=== PATIENT | female | born 1990 | race African-American/Black ===

== ENCOUNTER 2017-11-13 01:49 | Emergency (ER) | payer OTHER ==
[~2017-11-13] VITALS: Ht 157.5 cm; Wt 79.4 kg
[~2017-11-13 01:49] MED LIST: BACTRIM DS TAB1 EACH PO; BENTYL 20 MG TA20 M1 PO; BENTYL20 MG PO; CIPROFLOXACIN500 M1 PO; DEPAKOTE ER500 MG; DEPAKOTE500 MG PO; FLAGYL500 MG PO; GABAPENTIN600 M1 PO; HYDROCHLOROTH12.5 MG; HYDROCHLOROTH12.5 MG PO; MICROZIDE12.5 MG PO; NOHOMEMEDICATIONS; NORCO 5-325 TA1 EACH PO; PERCOCET 5-3251 EACH PO; PHENERGAN 25 MG25 M1 PO; PHENERGAN50 MG RC; PROMETHAZINE12.5 M4 RE; TORADOL 10 MG T10 MG PO; TRAMADOL 50 MG50 MG PO; ULTRAM 50MG TAB50 MG PO; VALIUM5 MG PO; ZANTAC 150MG T150 M1 PO; ZOFRAN 4 MG ORAL4 MG PO; ZOFRAN ODT4 MG PO; ZOFRAN4 MG PO
[2017-11-13 04:03] VITALS: BP 126/84
== END 2017-11-13 04:04 | disposition home or self-care (01) ==
LOC: ER 01:49
DX: S51.812A Laceration without foreign body of left forearm, initial encounter (principal); I10 Essential (primary) hypertension; G40.909 Epilepsy, unspecified, not intractable, without status epilepticus; Z88.6 Allergy status to analgesic agent; F17.210 Nicotine dependence, cigarettes, uncomplicated; W45.8XXA Other foreign body or object entering through skin, initial encounter; Y93.G3 Activity, cooking and baking; Y92.89 Other specified places as the place of occurrence of the external cause; Y99.8 Other external cause status

== ENCOUNTER 2018-01-11 23:43 | Emergency (ER) | payer OTHER ==
[~2018-01-11] VITALS: Ht 157.5 cm; Wt 73.9 kg
[2018-01-12] MEDS ORDERED: HYDROCODONE-ACE15 ML PO (00:07)
[2018-01-12] MEDS ORDERED: METOCLOPRAMIDE 55 MG PO (00:19)
[2018-01-12 01:05] VITALS: BP 140/92
== END 2018-01-12 01:10 | disposition home or self-care (01) ==
LOC: ER 23:43
DX: S00.83XA Contusion of other part of head, initial encounter (principal); M26.602 Left temporomandibular joint disorder, unspecified; I10 Essential (primary) hypertension; G40.909 Epilepsy, unspecified, not intractable, without status epilepticus; F17.210 Nicotine dependence, cigarettes, uncomplicated; Z91.041 Radiographic dye allergy status; Z88.6 Allergy status to analgesic agent; Z91.012 Allergy to eggs; X58.XXXA Exposure to other specified factors, initial encounter; Y93.89 Activity, other specified; Y92.89 Other specified places as the place of occurrence of the external cause; Y99.8 Other external cause status

== ENCOUNTER 2018-03-11 23:02 | Emergency (ER) | payer OTHER ==
[~2018-03-11] VITALS: Ht 157.5 cm; Wt 73.5 kg
--- NOTE | ~2018-03-11 | EKG ---
[place] [address] [address] [employer] [facility] [place] [place] [address] ELECTROCARDIOGRAM REPORT Name: CARMEN OLIVEIRA [facility]: [facility] [id number] Admission: 03/11/18 Attend Phys: Discharge: 03/12/18 Date of : 86 Report #: [id number] THIS REPORT FOR: //name// [facility] ED Test Date: 2018-03-11 Test Time: 23:08:33 Pat Name: CARMEN OLIVEIRA Department: Room: Gender: F Manager Law: GREGOR : 1990 Requested By: Ange Ye Order Number: [id number] MD: Omar Echeverria Measurements Intervals [place] Rate: 91 P: 46 [place]: 150 QRS: 12 QRSD: 88 T: 16 QT: 356 QTc: 439 Interpretive Statements Sinus rhythm RSR' in V1 or V2, right VCD Baseline wander in lead(s) II No previous ECG available for comparison Electronically Signed On 03-12-2018 7:50:22 CDT by Omar Echeverria [email or web address] <ELECTRONICALLY SIGNED> By: Omar Echeverria MD, [facility] 03/12/18 0750 07 07 Omar Echeverria MD, [facility] /EPI
[~2018-03-11 23:02] MED LIST changes: +HYDROCODONE-ACE15 ML PO; +METOCLOPRAMIDE 55 MG PO
[2018-03-12 00:38] LABS: ABSOLUTE NEUTROPHILS 10.8 thou/uL (1.4-8.2); BASOPHILS 0.7 % (0.0-2.0); EOSINOPHILS 0.4 % (0.0-3.0); HEMATOCRIT 32.8 % (37.0-47.0); HEMOGLOBIN 11.1 gm/dL (12.0-15.0); MCH 26.3 pg (26.0-34.0); MCHC 33.8 g/dL (28.0-37.0); MCV 77.8 fL (80.0-100.0); MONOCYTES 7.4 % (1.0-8.0); PLATELET COUNT 457 thou/uL (150-400); POLYS 70.5 % (36.0-66.0); RBC 4.21 mil/uL (4.20-5.00); WBC 15.3 thou/uL (4.0-11.0)
[2018-03-12 00:45] LABS: ANION GAP 12 mmol/L (7-16); BUN 17 mg/dL (7-18); CALCIUM 9.4 mg/dL (8.5-10.1); CHLORIDE 106 mmol/L (98-107); CO2 22 mmol/L (21-32); CREATININE 0.7 mg/dL (0.6-1.0); GLUCOSE 81 mg/dL (74-106); POTASSIUM 3.9 mmol/L (3.5-5.1); SODIUM 140 mmol/L (136-145)
[2018-03-12 00:54] LABS: TROPONIN-I <0.06 ng/mL (<0.06)
[2018-03-12] MEDS ORDERED: NORCO 5-325 TA1 EACH PO (01:31)
[2018-03-12 02:03] VITALS: BP 138/98
== END 2018-03-12 02:15 | disposition home or self-care (01) ==
LOC: ER 23:02
PROVIDERS: Emergency Medicine
DX: R07.9 Chest pain, unspecified (principal); R09.1 Pleurisy; F17.210 Nicotine dependence, cigarettes, uncomplicated; I10 Essential (primary) hypertension; F20.9 Schizophrenia, unspecified; F31.9 Bipolar disorder, unspecified; K74.60 Unspecified cirrhosis of liver; Z91.041 Radiographic dye allergy status; Z88.6 Allergy status to analgesic agent; Z91.012 Allergy to eggs

== ENCOUNTER 2018-06-14 15:19 | Inpatient (IN) | payer OTHER ==
[~2018-06-14] VITALS: Ht 157.5 cm; Wt 77.1 kg
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
--- NOTE | ~2018-06-14 | PATH ---
[facility] [place] [address] PATHOLOGY RPT PROCEDURE Name: WILLIAM THOMPSON Room #: 424-P DIS IN M.R.#: [id number] Admission: 06/14/18 Date of : 86 Discharge: 06/18/18 Report #: [id number] Path Case #: [id number] [facility] Accession Number: [id number] . 01 Material submitted: . PART A: DUODENAL BX PART B: ANTRUM BX PART C: RANDOM COLON BX . 01 Clinical history: . Pre-OP DX: Abdominal pain, nausea with vomiting, diarrhea Post-OP DX: BX . 02 Diagnosis: A. Small bowel mucosa, duodenal, rule out celiac, endoscopic biopsy: - No diagnostic abnormalities. - Negative for villous blunting or increase in intraepithelial lymphocytes. . B. Gastric mucosa, antrum, endoscopic biopsy: - Mild reactive gastropathy. - Negative for intestinal metaplasia or atrophy. - Negative for Helicobacter pylori (properly controlled immunohistochemical stain performed). . C. Large intestine mucosa, random colon, endoscopic biopsy: - Rare focus of acute cryptitis; nonspecific changes (please see comment). - Negative for dysplasia or malignancy. . (IUV:airport ramp agent; 06/18/2018) MBR/06/18/2018 . 02 Comment: Sections of the colonic mucosa designated "random colon" show focal cryptitis, and a moderately cellular lamina propria composed predominantly of lymphocytes and plasma cells and occasional eosinophils. Surface epithelial inflammation is not identified. There are no crypt abscesses, granulomas or viral inclusions. The process affects all the fragments with a similar intensity. Given the description, the differential diagnosis includes mild focal active colitis of self-limited etiology, or bowel preparation, or acute diverticulitis, or medication-induced colitis. Please correlate with clinically. Features to suggest microscopic colitis are not present. . (IUV:airport ramp agent; 06/18/2018) . 02 Electronically signed: . [place] [address] PATHOLOGY RPT PROCEDURE Name: WILLIAM THOMPSON FEDERICO Room #: 424-P [facility] IN M.R.#: [id number] Admission: 06/14/18 Date of : 86 Discharge: 06/18/18 Report #: [id number] Path Case #: [id number] Anat Jimenez MD, Pathologist NPI- [id number] . 01 Gross description: . A. Received in formalin labeled "Jay, Tysa, duodenal BX," are 2 segments of childress soft tissue measuring 0.7 x 0.2 x 0.2 cm in aggregate dimensions and ranging from 0.3 to 0.4 cm in maximum dimension. The specimen is submitted entirely in cassette A1. . B. Received in formalin labeled "William Thompson, antrum BX," are 2 segments of childress soft tissue measuring 1.2 x 0.1 x 0.1 cm in aggregate dimensions and ranging from 0.5 to 0.7 cm in maximum dimension. The specimen is submitted entirely in cassette B1. . C. Received in formalin labeled "William Thompson, random colon BX," are multiple segments of childress soft tissue measuring 1.3 x 0.4 x 0.1 cm in aggregate dimensions. The specimen is filtered and entirely submitted in cassette C1. (TSD; 06/17/2018) TOB/TOB . 02 Pathologist provided ICD-10: K31.9, R10.9, R11.2, R19.7 . 02 CPT . 736751, 319162, 745485, R32144 Specimen Comment: A courtesy copy of this report has been sent to Specimen Comment: [phone], . Specimen Comment: Report sent to / DR BAIRD Specimen Comment: A duplicate report has been generated due to demographic updates. Performed at: [address], [place] [id number] MD Conor Nieves MD Phone: [phone] Performed at: [address] [id number] MD Anat Jimenez MD Phone: [phone]
[~2018-06-14 15:19] MED LIST changes: +COMPAZINE10 MG PO; +FLAGYL500 M1 PO
[2018-06-14 15:20] VITALS: BP 160/88
[2018-06-14 16:25] LABS: URINE BILIRUBIN NEGATIVE (Negative); URINE BLOOD 1+ (Negative); URINE CLARITY CLEAR; URINE COLOR YELLOW; URINE GLUCOSE-RANDOM* NEGATIVE (Negative); URINE KETONES NEGATIVE (Negative); URINE LEUKOCYTES-REFLEX NEGATIVE (Negative); URINE NITRITE-REFLEX NEGATIVE (Negative); URINE PROTEIN (DIPSTICK) NEGATIVE (Negative); URINE SPECIFIC GRAVITY 1.015 (1.005-1.035); URINE UROBILINOGEN 0.2 E.U./dl (0.2-1.0)
[2018-06-14 16:30] LABS: CASTS None Seen /LPF (None Seen); MUCUS 0-3 Light strn/LPF (None Seen); SQUAMOUS >10 Many /LPF (0-3); URINE RBC 3-10 Few /HPF (0-2)
[2018-06-14 16:31] LABS: BACTERIA-REFLEX None Seen /HPF (None Seen); CRYSTALS None Seen /LPF (None Seen); URINE WBC-REFLEX None Seen /HPF (0-5)
[2018-06-14 17:17] LABS: ABSOLUTE NEUTROPHILS 9.5 thou/uL (1.4-8.2); BASOPHILS 0.8 % (0.0-2.0); EOSINOPHILS 1.1 % (0.0-3.0); HEMATOCRIT 32.9 % (37.0-47.0); HEMOGLOBIN 11.4 gm/dL (12.0-15.0); LYMPHOCYTES 25.2 % (24.0-44.0); MCH 27.9 pg (26.0-34.0); MCHC 34.7 g/dL (28.0-37.0); MCV 80.3 fL (80.0-100.0); PLATELET COUNT 423 thou/uL (150-400); POLYS 66.9 % (36.0-66.0); RDW 14.8 % (10.5-14.5); WBC 14.2 thou/uL (4.0-11.0)
[2018-06-14 17:25] LABS: CALCIUM 9.1 mg/dL (8.5-10.1); CREATININE 0.8 mg/dL (0.6-1.0); POTASSIUM 4.2 mmol/L (3.5-5.1)
[2018-06-14 17:31] LABS: ALBUMIN 3.6 g/dL (3.4-5.0); TOTAL BILIRUBIN 0.3 mg/dL (<0.1-1.0)
[2018-06-14 19:37] VITALS: BP 160/88
[2018-06-14 20:22] VITALS: BP 143/84
[2018-06-14 21:30] VITALS: BP 145/98
[2018-06-15] MEDS ORDERED: XIFAXAN550 M1 PO (04:46)
[2018-06-15] MEDS ORDERED: PROTONIX 20 MG20 M1 PO (04:58)
[2018-06-15 05:15] VITALS: BP 129/76
[2018-06-15 07:58] VITALS: BP 121/80
[2018-06-15 16:52] VITALS: BP 112/86
[2018-06-15 20:05] VITALS: BP 142/75
[2018-06-16 04:02] LABS: ABSOLUTE NEUTROPHILS 10.5 thou/uL (1.4-8.2); BASOPHILS 0.5 % (0.0-2.0); EOSINOPHILS 0.4 % (0.0-3.0); HEMATOCRIT 32.9 % (37.0-47.0); HEMOGLOBIN 11.1 gm/dL (12.0-15.0); LYMPHOCYTES 31.9 % (24.0-44.0); MCH 27.2 pg (26.0-34.0); MCHC 33.6 g/dL (28.0-37.0); MONOCYTES 6.6 % (1.0-8.0); PLATELET COUNT 422 thou/uL (150-400); POLYS 60.6 % (36.0-66.0); RBC 4.07 mil/uL (4.20-5.00); RDW 15.1 % (10.5-14.5); WBC 17.3 thou/uL (4.0-11.0)
[2018-06-16 04:16] LABS: ALBUMIN 3.7 g/dL (3.4-5.0); CALCIUM 8.5 mg/dL (8.5-10.1); CREATININE 0.7 mg/dL (0.6-1.0); MAGNESIUM 1.8 mg/dL (1.8-2.4); POTASSIUM 3.9 mmol/L (3.5-5.1); TOTAL BILIRUBIN 0.2 mg/dL (<0.1-1.0)
[2018-06-16 08:04] VITALS: BP 133/80
[2018-06-16 17:14] VITALS: BP 134/83
[2018-06-17 03:50] VITALS: BP 121/81
[2018-06-17 05:40] LABS: ABSOLUTE NEUTROPHILS 7.5 thou/uL (1.4-8.2); BASOPHILS 0.6 % (0.0-2.0); EOSINOPHILS 2.1 % (0.0-3.0); HEMATOCRIT 31.4 % (37.0-47.0); HEMOGLOBIN 10.8 gm/dL (12.0-15.0); LYMPHOCYTES 36.3 % (24.0-44.0); MCH 27.9 pg (26.0-34.0); MCHC 34.2 g/dL (28.0-37.0); MCV 81.6 fL (80.0-100.0); MONOCYTES 6.9 % (1.0-8.0); PLATELET COUNT 365 thou/uL (150-400); POLYS 54.1 % (36.0-66.0); RBC 3.85 mil/uL (4.20-5.00); RDW 15.3 % (10.5-14.5)
[2018-06-17 05:58] LABS: CALCIUM 8.5 mg/dL (8.5-10.1); CREATININE 0.5 mg/dL (0.6-1.0); POTASSIUM 4.6 mmol/L (3.5-5.1)
[2018-06-17 19:46] VITALS: BP 136/86
[2018-06-18 04:06] VITALS: BP 114/57
[2018-06-18] MEDS ORDERED: BENTYL 10 MG CA10 M1 PO (09:51)
[2018-06-18] MEDS ORDERED: HYDROCODONE-AP1 EAC6 PO (09:51)
[2018-06-18 13:40] VITALS: BP 114/57
== END 2018-06-18 14:25 | disposition home or self-care (01) | DRG 392 ==
LOC: ER 15:19 → 4E 19:16 → EROBS 19:16 → 4E 20:25
PROVIDERS: Emergency Medicine; Hospitalist
DX: K52.9 Noninfective gastroenteritis and colitis, unspecified (principal); I10 Essential (primary) hypertension; G40.909 Epilepsy, unspecified, not intractable, without status epilepticus; K74.60 Unspecified cirrhosis of liver; F20.9 Schizophrenia, unspecified; F31.9 Bipolar disorder, unspecified; B19.20 Unspecified viral hepatitis C without hepatic coma; K58.0 Irritable bowel syndrome with diarrhea; K22.2 Esophageal obstruction; K29.70 Gastritis, unspecified, without bleeding; K44.9 Diaphragmatic hernia without obstruction or gangrene; K64.8 Other hemorrhoids; E28.2 Polycystic ovarian syndrome; F17.210 Nicotine dependence, cigarettes, uncomplicated; Z85.44 Personal history of malignant neoplasm of other female genital organs; Z71.6 Tobacco abuse counseling; Z79.899 Other long term (current) drug therapy; Z87.11 Personal history of peptic ulcer disease; Z88.8 Allergy status to other drugs, medicaments and biological substances; Z91.041 Radiographic dye allergy status; Z91.012 Allergy to eggs; Z80.0 Family history of malignant neoplasm of digestive organs; Z83.79 Family history of other diseases of the digestive system; Z83.71 Family history of colonic polyps; Z83.3 Family history of diabetes mellitus
CPT/HCPCS: 10084; 62110; 62900

== ENCOUNTER 2018-12-13 21:20 | Emergency (ER) | payer OTHER ==
[~2018-12-13] VITALS: Ht 157.5 cm; Wt 77.1 kg
[~2018-12-13 21:20] MED LIST changes: +BENTYL 10 MG CA10 M1 PO; +DURAGESIC1 EAC4 TRANSDERM; +HYDROCODONE-AP1 EAC6 PO; +NORVASC10 MG PO; +PROTONIX 20 MG20 M1 PO; +XIFAXAN550 M1 PO
[2018-12-13 23:11] LABS: URINE BILIRUBIN NEGATIVE (Negative); URINE BLOOD NEGATIVE (Negative); URINE CLARITY CLEAR; URINE COLOR YELLOW; URINE GLUCOSE-RANDOM* NEGATIVE (Negative); URINE KETONES NEGATIVE (Negative); URINE LEUKOCYTES-REFLEX NEGATIVE (Negative); URINE NITRITE-REFLEX NEGATIVE (Negative); URINE PROTEIN (DIPSTICK) NEGATIVE (Negative); URINE SPECIFIC GRAVITY 1.025 (1.005-1.035); URINE UROBILINOGEN 0.2 E.U./dl (0.2-1.0)
[2018-12-13 23:40] LABS: ABSOLUTE NEUTROPHILS 7.9 thou/uL (1.4-8.2); BASOPHILS 0.5 % (0.0-2.0); EOSINOPHILS 2.1 % (0.0-3.0); HEMATOCRIT 34.1 % (37.0-47.0); HEMOGLOBIN 11.8 gm/dL (12.0-15.0); LYMPHOCYTES 29.7 % (24.0-44.0); MCH 26.9 pg (26.0-34.0); MCHC 34.6 g/dL (28.0-37.0); MCV 77.8 fL (80.0-100.0); MONOCYTES 5.9 % (1.0-8.0); PLATELET COUNT 370 thou/uL (150-400); POLYS 61.8 % (36.0-66.0); RBC 4.37 mil/uL (4.20-5.00); RDW 15.7 % (10.5-14.5); WBC 12.8 thou/uL (4.0-11.0)
[2018-12-13 23:47] LABS: ANION GAP 11 mmol/L (7-16); BUN 13 mg/dL (7-18); CALCIUM 8.6 mg/dL (8.5-10.1); CHLORIDE 104 mmol/L (98-107); CO2 25 mmol/L (21-32); CREATININE 0.7 mg/dL (0.6-1.0); GLUCOSE 111 mg/dL (74-106); POTASSIUM 3.6 mmol/L (3.5-5.1); SODIUM 140 mmol/L (136-145)
[2018-12-13 23:53] LABS: ALBUMIN 3.7 g/dL (3.4-5.0); DIRECT BILIRUBIN < 0.1 mg/dL (<0.1-0.3); LIPASE 98 U/L (73-393); SGOT 19 U/L (15-37); SGPT 25 U/L (30-65); TOTAL BILIRUBIN 0.1 mg/dL (<0.1-1.0); TOTAL PROTEIN 6.9 g/dL (6.4-8.2)
[2018-12-14] MEDS ORDERED: ZOFRAN ODT4 MG PO (01:57)
[2018-12-14] MEDS ORDERED: PENICILLIN VK500 M1 PO (01:57)
[2018-12-14 02:12] VITALS: BP 154/99
== END 2018-12-14 02:24 | disposition home or self-care (01) ==
LOC: ER 21:20
PROVIDERS: Emergency Medicine
DX: R10.11 Right upper quadrant pain (principal); K04.7 Periapical abscess without sinus; I10 Essential (primary) hypertension; G40.909 Epilepsy, unspecified, not intractable, without status epilepticus; F31.9 Bipolar disorder, unspecified; F20.9 Schizophrenia, unspecified; F17.210 Nicotine dependence, cigarettes, uncomplicated; Z88.6 Allergy status to analgesic agent; Z91.012 Allergy to eggs; Z88.8 Allergy status to other drugs, medicaments and biological substances

== ENCOUNTER 2019-04-16 15:19 | Emergency (ER) | payer OTHER ==
[~2019-04-16] VITALS: Ht 157.5 cm; Wt 77.1 kg
[~2019-04-16 15:19] MED LIST changes: +PENICILLIN VK500 M1 PO
[2019-04-16 16:38] LABS: ABSOLUTE NEUTROPHILS 8.9 thou/uL (1.4-8.2); BASOPHILS 0.4 % (0.0-2.0); EOSINOPHILS 1.9 % (0.0-3.0); HEMATOCRIT 35.6 % (37.0-47.0); HEMOGLOBIN 11.7 gm/dL (12.0-15.0); LYMPHOCYTES 21.9 % (24.0-44.0); MCH 26.7 pg (26.0-34.0); MCHC 32.9 g/dL (28.0-37.0); MCV 81.2 fL (80.0-100.0); MONOCYTES 3.9 % (1.0-8.0); PLATELET COUNT 459 thou/uL (150-400); POLYS 71.9 % (36.0-66.0); RBC 4.39 mil/uL (4.20-5.00); RDW 15.3 % (10.5-14.5); WBC 12.3 thou/uL (4.0-11.0)
[2019-04-16] MEDS ORDERED: BENTYL 10 MG CA10 M1 PO (16:38)
[2019-04-16 16:46] LABS: ANION GAP 9 mmol/L (7-16); BUN 10 mg/dL (7-18); CALCIUM 9.5 mg/dL (8.5-10.1); CHLORIDE 105 mmol/L (98-107); CO2 28 mmol/L (21-32); CREATININE 0.8 mg/dL (0.6-1.0); GLUCOSE 103 mg/dL (74-106); POTASSIUM 3.7 mmol/L (3.5-5.1); SODIUM 142 mmol/L (136-145)
[2019-04-16 16:55] LABS: TROPONIN-I <0.06 ng/mL (<0.06)
[2019-04-16] MEDS ORDERED: ASPIRIN EC81 M1 PO (17:17)
[2019-04-16] MEDS ORDERED: APAP650 PO (17:17)
[2019-04-16 17:56] VITALS: BP 145/93
--- NOTE | 2019-04-17 17:14 | EKG ---
[place] [address] [facility] [place] [address] ELECTROCARDIOGRAM REPORT Name: CARMEN OLIVEIRA [facility]: [facility] [id number] ������������������ Admission: 04/16/19 ������������������ Attend Phys: Discharge: 04/16/19 ������������������ Date of : 86 Report #: [id number] ����������������������������������������������������������������� [id number] THIS REPORT FOR: //name// [facility] ED Test Date: 2019-04-16 Test Time: 15:22:58 Pat Name: CARMEN OLIVEIRA Department: Room: Gender: F Ladle Patcher: JANI : 1990 Requested By: Connie Arguello Order Number: [id number] MD: Omar Echeverria Measurements Intervals [place] Rate: 74 P: 36 RI: 152 QRS: 53 QRSD: 91 T: 25 QT: 377 QTc: 419 Interpretive Statements Sinus rhythm RSR' in V1 or V2, probably normal variant Borderline T abnormalities, anterior leads Compared to ECG 03/11/2018 23:08:33 No significant change was found Electronically Signed On 04-17-2019 17:13:48 CDT by Omar Echeverria [email or web address] ��������������������������������������������� <ELECTRONICALLY SIGNED> ���������������������������������������� By: Omar Echeverria MD, [facility] ��������������������������������������������� 04/17/19 1713 1522 152 Omra Echeverria MD, [facility] /EPI
== END 2019-04-16 17:56 | disposition home or self-care (01) ==
LOC: ER 15:19
PROVIDERS: Emergency Medicine Emergency Medical Services
DX: I31.9 Disease of pericardium, unspecified (principal); F17.210 Nicotine dependence, cigarettes, uncomplicated; I10 Essential (primary) hypertension; F20.9 Schizophrenia, unspecified; K58.9 Irritable bowel syndrome, unspecified; F31.9 Bipolar disorder, unspecified; K74.60 Unspecified cirrhosis of liver; Z91.012 Allergy to eggs; Z88.6 Allergy status to analgesic agent; Z91.041 Radiographic dye allergy status

== ENCOUNTER 2019-07-27 16:12 | Emergency (ER) | payer OTHER ==
[~2019-07-27] VITALS: Ht 157.5 cm; Wt 77.1 kg
[~2019-07-27 16:12] MED LIST changes: +APAP650 PO; +ASPIRIN EC81 M1 PO
[2019-07-27 17:05] LABS: URINE BILIRUBIN NEGATIVE (Negative); URINE BLOOD 3+ (Negative); URINE CLARITY CLEAR; URINE COLOR YELLOW; URINE GLUCOSE-RANDOM* NEGATIVE (Negative); URINE KETONES NEGATIVE (Negative); URINE LEUKOCYTES-REFLEX NEGATIVE (Negative); URINE NITRITE-REFLEX NEGATIVE (Negative); URINE PROTEIN (DIPSTICK) TRACE (Negative); URINE UROBILINOGEN 0.2 E.U./dl (0.2-1.0)
[2019-07-27 17:23] LABS: CASTS None Seen /LPF (None Seen); CRYSTALS None Seen /LPF (None Seen); SQUAMOUS 0-3 Few /LPF (0-3); URINE RBC >20 Many /HPF (0-2)
[2019-07-27 17:24] LABS: BACTERIA-REFLEX 1-9 Few /HPF (None Seen); URINE WBC-REFLEX None Seen /HPF (0-5)
[2019-07-27] MEDS ORDERED: BENTYL 10 MG CA10 M1 PO (18:40)
[2019-07-27 19:07] LABS: ABSOLUTE NEUTROPHILS 10.8 thou/uL (1.4-8.2); BASOPHILS 0.6 % (0.0-2.0); EOSINOPHILS 0.5 % (0.0-3.0); HEMATOCRIT 34.7 % (37.0-47.0); HEMOGLOBIN 11.5 gm/dL (12.0-15.0); LYMPHOCYTES 20.1 % (24.0-44.0); MCHC 33.1 g/dL (28.0-37.0); MCV 78.8 fL (80.0-100.0); MONOCYTES 7.6 % (1.0-8.0); PLATELET COUNT 442 thou/uL (150-400); POLYS 71.2 % (36.0-66.0); RBC 4.41 mil/uL (4.20-5.00); RDW 16.3 % (10.5-14.5); WBC 15.1 thou/uL (4.0-11.0)
[2019-07-27 19:15] LABS: ANION GAP 11 mmol/L (7-16); BUN 15 mg/dL (7-18); CALCIUM 8.8 mg/dL (8.5-10.1); CHLORIDE 105 mmol/L (98-107); CO2 24 mmol/L (21-32); CREATININE 0.7 mg/dL (0.6-1.0); GLUCOSE 81 mg/dL (74-106); POTASSIUM 3.8 mmol/L (3.5-5.1); SODIUM 140 mmol/L (136-145)
[2019-07-27 19:21] LABS: ALBUMIN 3.7 g/dL (3.4-5.0); AMYLASE 49 U/L (25-115); DIRECT BILIRUBIN < 0.1 mg/dL (<0.1-0.2); LIPASE 52 U/L (73-393); SGOT 16 U/L (15-37); SGPT 19 U/L (30-65); TOTAL BILIRUBIN 0.4 mg/dL (<0.1-1.0); TOTAL PROTEIN 7.3 g/dL (6.4-8.2)
[2019-07-27] MEDS ORDERED: KEFLEX500 M1 PO (21:02)
[2019-07-27] MEDS ORDERED: NORCO 5-325 TA1 EAC2 PO (21:02)
[2019-07-27 21:22] VITALS: BP 146/89
== END 2019-07-27 21:24 | disposition home or self-care (01) ==
LOC: ER 16:12
PROVIDERS: Emergency Medicine
DX: N83.201 Unspecified ovarian cyst, right side (principal); R10.31 Right lower quadrant pain; R30.0 Dysuria; I10 Essential (primary) hypertension; F31.9 Bipolar disorder, unspecified; F20.9 Schizophrenia, unspecified; F17.210 Nicotine dependence, cigarettes, uncomplicated; Z79.82 Long term (current) use of aspirin; Z88.6 Allergy status to analgesic agent; Z91.041 Radiographic dye allergy status; Z91.012 Allergy to eggs

== ENCOUNTER 2020-01-24 15:10 | Emergency (ER) | payer OTHER ==
[~2020-01-24] VITALS: Ht 157.5 cm; Wt 77.1 kg
[~2020-01-24 15:10] MED LIST changes: +KEFLEX500 M1 PO; +NORCO 5-325 TA1 EAC2 PO
[2020-01-24 16:43] LABS: BASOPHILS 0.3 % (0.0-2.0); EOSINOPHILS 0.5 % (0.0-3.0); HEMATOCRIT 35.1 % (37.0-47.0); HEMOGLOBIN 12.5 gm/dL (12.0-15.0); LYMPHOCYTES 22.6 % (24.0-44.0); MCH 28.1 pg (26.0-34.0); MCHC 35.5 g/dL (28.0-37.0); MCV 79.3 fL (80.0-100.0); MONOCYTES 6.3 % (1.0-8.0); PLATELET COUNT 394 thou/uL (150-400); POLYS 70.3 % (36.0-66.0); RBC 4.43 mil/uL (4.20-5.00); RDW 15.2 % (10.5-14.5); WBC 11.4 thou/uL (4.0-11.0)
[2020-01-24 16:52] LABS: ANION GAP 4 mmol/L (7-16); BUN 6 mg/dL (7-18); CALCIUM 8.6 mg/dL (8.5-10.1); CHLORIDE 102 mmol/L (98-107); CO2 29 mmol/L (21-32); CREATININE 0.8 mg/dL (0.6-1.0); GLUCOSE 109 mg/dL (74-106); POTASSIUM 4.2 mmol/L (3.5-5.1); SODIUM 135 mmol/L (136-145)
[2020-01-24 17:01] LABS: LIPASE 62 U/L (73-393); TROPONIN-I <0.06 ng/mL (<0.06)
[2020-01-24] MEDS ORDERED: DEPAKOTE500 MG PO (17:32)
[2020-01-24] MEDS ORDERED: ZOFRAN ODT4 MG PO (18:17)
[2020-01-24 18:33] VITALS: BP 132/83
--- NOTE | 2020-01-25 07:53 | EKG ---
[facility] [place] [address] ELECTROCARDIOGRAM REPORT Name: CARMEN OLIVEIRA Room #: [facility]#: [id number] Admission: 01/24/20 Attend Phys: Discharge: 01/24/20 Date of : [birth year] Report #: [id number] THIS REPORT FOR: cc: [facility] - Eugenia family physician/PCP [facility] - Eugenia family physician/PCP Omar Echeverria MD [facility] THIS REPORT FOR: //name// [facility] ED Test Date: 2020-01-24 Test Time: 15:20:08 Pat Name: CARMEN OLIVEIRA Department: Room: Gender: Direct Sales Professional: [facility] : 1990 Requested By: Melvin Andre Order Number: [id number] MD: Omar Echeverria Measurements Intervals [place] Rate: 71 P: 56 [place]: 142 QRS: 19 QRSD: 98 T: 17 QT: 391 QTc: 425 Interpretive Statements Sinus rhythm No significant abnormality Compared to ECG 04/16/2019 15:22:58 T-wave abnormality no longer present Electronically Signed On 01-25-2020 7:52:49 CDT by Omar Echeverria [email or web address] <ELECTRONICALLY SIGNED> By: Omar Echeverria MD, [facility] 01/25/20 0752 1520 1520 Omar Echeverria MD, [facility] /EPI
== END 2020-01-24 18:33 | disposition home or self-care (01) ==
LOC: ER 15:10
PROVIDERS: Emergency Medicine
DX: R07.89 Other chest pain (principal); R10.9 Unspecified abdominal pain; R06.02 Shortness of breath; G40.909 Epilepsy, unspecified, not intractable, without status epilepticus; I10 Essential (primary) hypertension; F31.9 Bipolar disorder, unspecified; F17.210 Nicotine dependence, cigarettes, uncomplicated; Z86.73 Personal history of transient ischemic attack (TIA), and cerebral infarction without residual deficits; Z79.82 Long term (current) use of aspirin; Z79.899 Other long term (current) drug therapy; Z91.012 Allergy to eggs; Z88.8 Allergy status to other drugs, medicaments and biological substances; Z91.041 Radiographic dye allergy status

== ENCOUNTER 2020-07-12 17:06 | Emergency (ER) | payer OTHER ==
[~2020-07-12] VITALS: Ht 157.5 cm; Wt 79.4 kg
[2020-07-12] MEDS ORDERED: MOBIC15 MG PO (17:43)
[2020-07-12 19:59] VITALS: BP 155/99
== END 2020-07-12 20:01 | disposition home or self-care (01) ==
LOC: ER 17:06
DX: M79.672 Pain in left foot (principal); M25.572 Pain in left ankle and joints of left foot; I10 Essential (primary) hypertension; F17.210 Nicotine dependence, cigarettes, uncomplicated; Z79.899 Other long term (current) drug therapy; Z88.8 Allergy status to other drugs, medicaments and biological substances; Z91.012 Allergy to eggs; Z91.041 Radiographic dye allergy status

== ENCOUNTER 2020-09-05 21:09 | Observation (INO) | payer OTHER ==
[~2020-09-05] VITALS: Ht 157.5 cm; Wt 83.0 kg
--- NOTE | ~2020-09-05 | EEG ---
[facility] [place] [address] ELECTROENCEPHALOGRAM Name: CARMEN OLIVEIRA Room #: 440-P [facility] Heather Montes De Oca#: [id number] Admission: 09/06/20 Attend Phys: Sebas Mustafa Discharge: 09/07/20 Date of : 86 Report #: [id number] THIS REPORT FOR: //name// DATE OF SERVICE: 09/07/2020 The patient is being evaluated for the possibility of seizure. EEG was done by placing the electrode by standard 10-20 system of electrode placement. Both referential and sequential montages were used for recording. Background activity in this patient's EEG is about 10 Hz and 30 microvolt. This patient goes to sleep repeatedly and that is associated with bilaterally symmetrical sleep spindle and vertex sharp wave. Photic stimulation is unremarkable. Throughout the record, no active epileptiform activity was noticed. IMPRESSION: This patient's EEG does not demonstrate any clear-cut epileptiform activity. That might be mentioned that EEG can be normal in a patient with seizure disorder. Thank you very much for this referral. By: 0937 0942 Warner Sharp MD /nt
[~2020-09-05 21:09] MED LIST changes: +MOBIC15 MG PO
--- NOTE | 2020-09-05 21:14 | NUR ---
SILVIA LITTLE - GIRLFRIEND - NEXT OF KIN/CONTACT
[2020-09-05 21:15] VITALS: BP 130/90
[2020-09-05] MEDS ORDERED: SEROQUEL 50 MG50 MG PO (21:22)
[2020-09-05] MEDS ORDERED: HYDROXYZINE HCL50 MG PO (21:23)
[2020-09-05 22:53] LABS: ABSOLUTE NEUTROPHILS 7.7 thou/uL (1.4-8.2); BASOPHILS 0.3 % (0.0-2.0); HEMATOCRIT 40.1 % (37.0-47.0); HEMOGLOBIN 13.5 gm/dL (12.0-15.0); LYMPHOCYTES 33.7 % (24.0-44.0); MCHC 33.8 g/dL (28.0-37.0); MCV 80.1 fL (80.0-100.0); MONOCYTES 9.4 % (1.0-8.0); PLATELET COUNT 402 thou/uL (150-400); POLYS 54.6 % (36.0-66.0); RBC 5.01 mil/uL (4.20-5.00); RDW 15.1 % (10.5-14.5); WBC 14.1 thou/uL (4.0-11.0)
[2020-09-05 23:24] LABS: ANION GAP 12 mmol/L (7-16); BUN 16 mg/dL (7-18); CALCIUM 8.8 mg/dL (8.5-10.1); CHLORIDE 102 mmol/L (98-107); CO2 22 mmol/L (21-32); CREATININE 0.9 mg/dL (0.6-1.0); GLUCOSE 100 mg/dL (74-106); POTASSIUM 4.9 mmol/L (3.5-5.1); SODIUM 136 mmol/L (136-145)
[2020-09-05 23:24] LABS: URINE BILIRUBIN NEGATIVE (Negative); URINE BLOOD NEGATIVE (Negative); URINE CLARITY CLEAR; URINE COLOR YELLOW; URINE GLUCOSE-RANDOM* NEGATIVE (Negative); URINE KETONES NEGATIVE (Negative); URINE LEUKOCYTES-REFLEX NEGATIVE (Negative); URINE NITRITE-REFLEX NEGATIVE (Negative); URINE PROTEIN (DIPSTICK) NEGATIVE (Negative); URINE SPECIFIC GRAVITY >= 1.030 (1.005-1.035)
[2020-09-05 23:29] LABS: ALBUMIN 4.2 g/dL (3.4-5.0); SGOT 24 U/L (15-37); SGPT 30 U/L (14-59); TOTAL BILIRUBIN 0.4 mg/dL (0.2-1.0); TOTAL PROTEIN 8.2 g/dL (6.4-8.2); TROPONIN-I <0.06 ng/mL (<0.06)
[2020-09-06] MEDS ORDERED: DEPAKOTE500 MG PO (01:07)
[2020-09-06] MEDS ORDERED: NEURONTIN300 MG PO (01:08)
[2020-09-06] MEDS ORDERED: BENTYL 10 MG CA10 M1 PO (01:08)
[2020-09-06] MEDS ORDERED: OXYCODONE HCL10 MG PO (01:10)
[2020-09-06] MEDS ORDERED: OXYCODONE HCL 55 MG PO (01:12)
[2020-09-06 02:47] VITALS: BP 151/98
[2020-09-06 02:58] VITALS: BP 123/78
[2020-09-06 03:13] VITALS: BP 108/61
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
--- NOTE | 2020-09-06 07:00 | EKG ---
[place] [address] [facility] [place] [address] ELECTROCARDIOGRAM REPORT Name: CARMEN OLIVEIRA Room #: 440-P ADM IN M.R.#: [id number] Admission: 09/06/20 Attend Phys: Sebas Mustafa, Discharge: Date of : 86 Report #: [id number] [facility] ED Test Date: 2020-09-05 Test Time: 23:01:50 Pat Name: CARMEN OLIVEIRA Department: Room: 440 Gender: F Government Operations Consultant: cortez : 1990 Requested By: Martha Patel Order Number: [id number] MD: Fuentes Rubi Measurements Intervals [place] Rate: 95 P: 62 ME: 151 QRS: 31 QRSD: 87 T: 10 QT: 336 QTc: 423 Interpretive Statements Sinus rhythm Nonspecific T abnrm, anterolateral leads Compared to ECG 01/24/2020 15:20:08 No significant changes Electronically Signed On 09-06-2020 7:00:04 LAND EXAMINER by Fuentes Rubi [email or web address] <ELECTRONICALLY SIGNED> By: Fuentes Rubi MD, [facility] 09/06/20 0700 00 2301 Fuentes Rubi MD, [facility]ACC /EPI
[2020-09-06 07:30] VITALS: BP 123/75
[2020-09-06] MEDS ORDERED: DULOXETINE HCL30 MG PO (12:34)
[2020-09-06] MEDS ORDERED: CYCLOBENZAPRINE5 MG PO (12:34)
[2020-09-06] MEDS ORDERED: XARELTO10 M1 PO (12:36)
[2020-09-06 16:05] VITALS: BP 146/102
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
[2020-09-06 20:29] VITALS: BP 129/85
--- NOTE | 2020-09-07 01:57 | NUR ---
ASSESSED AT START OF SHIFT. PT A&OX4 C/O OF HEADACHE AND ASKED FOR COCKTAIL MEDICATION. DR MARROQUIN STOPPED BY TO SEE PT. TYLENOL GIVEN AND ONETIME ORDER OF MIGRAINE COCKTAIL GIVEN. NIGHT TIME SNACKS PROVIDED. PT UP TO THE BATHROOM. SEIZURE PREC MAINTAINED. WILL CONT WITH POC TILL EOS.
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
[2020-09-07 07:10] VITALS: BP 125/72
[2020-09-07 14:21] VITALS: BP 125/72
[2020-09-07 14:48] VITALS: BP 125/72
--- NOTE | 2020-09-07 15:16 | NUR ---
ON-GOING ASSESSMENT: CM REVIEWED CHART AND SPOKE WITH PATIENT AND BEDSIDE RN. PLANS ARE TO DISCHARGE PT TODAY. PT STATING SHE WANTS TO GO HOME AND FEELS SAFE TO RETURN HOME. PT WAS PREVIOUSLY GIVEN RESOURCES EARLIER THIS STAY. PT IS TO HAVE MRI AN OUTPATIENT. CM PROVIDED PT WITH CONTACT NUMBER FOR SCHEDULING HERE AT [facility] IF SHE WANTS TO GET AN OUTPT MRI HERE. PT ALSO REQUESTING THE NUMBER FOR THE PAIN CLINIC AND CM PROVIDED THIS WELL IN HER DISCHARGE PAPERWORK. PT REPORTS SHE WILL HAVE TRANSPORTATION HOME.
[2020-09-07 15:27] VITALS: BP 125/72
[2020-09-07 15:55] VITALS: BP 125/72
--- NOTE | 2020-09-07 15:59 | NUR ---
DISCHARGE PAPERS REVIEWED WITH PATIENT SIGNED AND COPY IN CHART.ALL BELONGINGS PACKED SENT WITH PATIENT. IV ACSESS DCD PO PRN PAIN MED GIVEN BEFORE DISCHARGE PT PLEASANT AND COOPERATIVE WITH CARE.
== END 2020-09-07 16:05 | disposition home or self-care (01) ==
LOC: ER 21:09 → EROBS 09-06 02:25 → 4S 09-06 02:25
PROVIDERS: Physician Assistant; ADMIT Surgery; ATTEND Surgery
DX: S09.8XXA Other specified injuries of head, initial encounter (principal); G40.909 Epilepsy, unspecified, not intractable, without status epilepticus; I10 Essential (primary) hypertension; F20.9 Schizophrenia, unspecified; F31.9 Bipolar disorder, unspecified; F17.210 Nicotine dependence, cigarettes, uncomplicated; Z86.19 Personal history of other infectious and parasitic diseases; Z79.899 Other long term (current) drug therapy; Y00.XXXA Assault by blunt object, initial encounter; Y93.89 Activity, other specified; Y92.89 Other specified places as the place of occurrence of the external cause; Y99.8 Other external cause status
CPT/HCPCS: 10102

== ENCOUNTER 2020-10-30 14:40 | Emergency (ER) | payer OTHER ==
[~2020-10-30] VITALS: Ht 157.5 cm; Wt 77.1 kg
[~2020-10-30 14:40] MED LIST changes: +CYCLOBENZAPRINE5 MG PO; +DULOXETINE HCL30 MG PO; +HYDROXYZINE HCL50 MG PO; +NEURONTIN300 MG PO; +OXYCODONE HCL 55 MG PO; +OXYCODONE HCL10 MG PO; +SEROQUEL 50 MG50 MG PO; +XARELTO10 M1 PO
== END 2020-10-30 16:00 | disposition left against medical advice (07) ==
LOC: ER 14:40
DX: S90.32XA Contusion of left foot, initial encounter (principal); I10 Essential (primary) hypertension; F17.210 Nicotine dependence, cigarettes, uncomplicated; Z79.899 Other long term (current) drug therapy; Z88.8 Allergy status to other drugs, medicaments and biological substances; Z91.012 Allergy to eggs; W51.XXXA Accidental striking against or bumped into by another person, initial encounter; Y92.89 Other specified places as the place of occurrence of the external cause; Y93.89 Activity, other specified; Y99.8 Other external cause status